=== PATIENT | female | born 1965 | race African-American/Black ===

== ENCOUNTER → 2017-03-12 09:20 | Outpatient (CLI) | payer BC, OTHER | END | disposition home or self-care (01) | LOC: D.NM 02-25 09:00 | DX: E04.1 Nontoxic single thyroid nodule (principal) ==

== ENCOUNTER → 2018-03-04 17:36 | Outpatient (CLI) | payer BC, OTHER | END | disposition home or self-care (01) | LOC: D.MAMMO 16:15 | DX: Z12.31 Encounter for screening mammogram for malignant neoplasm of breast (principal) ==

== ENCOUNTER → 2018-04-13 20:25 | Outpatient (CLI) | payer BC | END | disposition home or self-care (01) | LOC: D.MAMMO 04-06 13:00 | DX: R92.8 Other abnormal and inconclusive findings on diagnostic imaging of breast (principal) ==

== ENCOUNTER 2019-09-08 19:30 | Emergency (ER) | payer BC ==
[~2019-09-08] VITALS: Ht 154.9 cm; Wt 92.5 kg
[2019-09-08 19:48] VITALS: BP 144/82; Ht 154.9 cm; Wt 92.5 kg
[2019-09-08] MEDS ORDERED: VITAMIN D31000 UNIT PO (19:49)
[2019-09-08] MEDS ORDERED: PRAVACHOL20 MG PO (19:49)
[2019-09-08] MEDS ORDERED: HYDROCHLOROTHIA25 MG PO (19:50)
[2019-09-08] MEDS ORDERED: ADERRAL (19:50)
[2019-09-08] MEDS ORDERED: BUPROPION HCL75 MG PO (19:50)
== END 2019-09-08 21:05 | disposition left against medical advice (07) ==
LOC: D.ER 19:30
DX: J11.1 Influenza due to unidentified influenza virus with other respiratory manifestations (principal)